=== PATIENT | female | born 1940 | race Caucasian/White ===

== ENCOUNTER 2016-07-15 01:40 | Inpatient (IN) | payer MEDICARE, BC ==
[~2016-07-15] VITALS: Ht 168.9 cm; Wt 69.0 kg
[2016-07-15] MEDS ORDERED: OMNIPAQUE 350 MG/ML, 100ML BOTTLE ONE (01:51)
[2016-07-15] MEDS ORDERED: SODIUM CHLORIDE FLUSH 10ML SYR IVF ONE (02:00)
[2016-07-15] MEDS ORDERED: SODIUM CHLORIDE 0.9% 1,000ML IVBOLUS ONE (02:00)
[2016-07-15] MEDS ORDERED: ONDANSETRON 2MG/ML, 2ML IVPush ONE (02:00)
[2016-07-15] MEDS ORDERED: ONDANSETRON 2MG/ML, 2ML ONE (02:19)
[2016-07-15 02:44] LABS: ASPARTATE AMINO TRANSFERASE 17 U/L (15-37); BLOOD UREA NITROGEN 14 mg/dL (7-18)
[2016-07-15 02:52] LABS: IS PT STATUS REG ER OR PRE ER? YES
[2016-07-15] MEDS ORDERED: SODIUM CHLORIDE 0.9% 1,000 ML IV SCH (03:42)
[2016-07-15] MEDS ORDERED: DOCUSATE CALCIUM 240 MG CAPSULE PO PRN (04:00)
[2016-07-15] MEDS ORDERED: ENOXAPARIN 40 MG/0.4 ML SQ SCH (04:00)
[2016-07-15] MEDS ORDERED: LABETALOL 5MG/ML, 20ML IV PRN (04:00)
[2016-07-15 04:16] VITALS: BP 137/82
[2016-07-15] MEDS ORDERED: LORazepam 0.5MG TABLET PO ONE (04:30)
[2016-07-15 05:40] VITALS: BP 137/82
[2016-07-15 05:51] VITALS: BP 119/63
[2016-07-15 06:34] VITALS: BP 131/69
[2016-07-15 06:41] LABS: PATH.CAST-FLAG NOT PRESENT; SPERM-FLAG NOT PRESENT; SRC-FLAG NOT PRESENT; XTAL-FLAG NOT PRESENT; YLC-FLAG NOT PRESENT
[2016-07-15] MEDS ORDERED: ASPIRIN 81 MG TABLET EC PO SCH (09:00)
[2016-07-15] MEDS ORDERED: LORazepam 2 MG/ML, 1ML IVPush ONE (11:00)
[2016-07-15 13:27] VITALS: BP 136/76
[2016-07-15] MEDS ORDERED: GADOBUTROL 7.5 MMOL/7.5 ML PFS ONE (15:24)
[2016-07-15] MEDS ORDERED: AMOX1TAB62 PO (16:50)
[2016-07-15] MEDS ORDERED: PNEUMOCOCCAL 23 VACCINE IM-VACC ONE (18:00)
[2016-07-15] MEDS ORDERED: ATORVASTATIN 40 MG TABLET PO SCH (21:00)
== END 2016-07-15 18:33 | disposition home or self-care (01) | DRG 153 ==
LOC: ED 03:04 → EDIP 03:21 → 4WST 04:16
PROVIDERS: ADMIT Hospitalist; ATTEND Hospitalist
DX: J32.3 Chronic sphenoidal sinusitis (principal); R42 Dizziness and giddiness; E83.51 Hypocalcemia; W18.30XA Fall on same level, unspecified, initial encounter; R73.9 Hyperglycemia, unspecified; Z79.82 Long term (current) use of aspirin; Z90.49 Acquired absence of other specified parts of digestive tract; Z90.710 Acquired absence of both cervix and uterus; Y93.89 Activity, other specified; Y92.89 Other specified places as the place of occurrence of the external cause
CPT/HCPCS: 36415; 70450; 70496; 70498; 70553; 80053; 81001; 83036; 84484; 85025; 85610; 85651; 85730; 86140; 87086; 90732; 93005; 93306; 96374; A9585; J2405; Q9967; J2060; J7030

== ENCOUNTER 2018-04-24 02:19 | Emergency (ER) | payer MEDICARE, BC ==
[~2018-04-24] VITALS: Ht 167.6 cm; Wt 63.0 kg
[~2018-04-24 02:19] MED LIST: AMOX1TAB62 PO
--- NOTE | 2018-04-24 02:55 | NUR ---
EPIGASTRIC PAIN AND TREMORS X 3 DAYS. LBM-YESTERDAY. DENIED URINARY SYPTOMS, URINE SAMPLE GIVEN. PT ANXIOUS AT THIS TIME. IV STARTED, PLACED ON ZYGLO INSPECTOR. AT BEDSIDE, CALL LIGHT IN REACH
[2018-04-24] MEDS ORDERED: LORazepam 2 MG/ML, 1ML IVPush ONE (03:00)
[2018-04-24 03:07] LABS: BASOPHILS # (AUTO) 0.02 x10^3/uL (0-0.1); BASOPHILS % (AUTO) 0 % (0-1); EOSINOPHILS # (AUTO) 0.15 x10^3/uL (0-0.4); EOSINOPHILS % (AUTO) 2 % (1-7); LYMPHOCYTES # (AUTO) 3.31 x10^3/uL (1-3.4); LYMPHOCYTES % (AUTO) 42 % (22-44); MD NO; MEAN CORPUSCULAR HEMOGLOBIN 29.9 pg (27.0-34.8); MEAN CORPUSCULAR HGB CONC 33.7 g/dL (32.4-35.8); MEAN CORPUSCULAR VOLUME 88.8 fL (80-100); MEAN PLATELET VOLUME 8.3 fL (7.4-10.4); MONOCYTES # (AUTO) 0.39 x10^3/uL (0.2-0.8); MONOCYTES % (AUTO) 5 % (2-9); NEUTROPHILS # (AUTO) 4.09 x10^3/uL (1.8-6.8); NEUTROPHILS % (AUTO) 51 % (42-75); PLATELET COUNT 316 x10^3/uL (130-400); RED BLOOD COUNT 4.43 x10^6/uL (3.82-5.3); RED CELL DISTRIBUTION WIDTH 13.9 % (9.6-15.2)
[2018-04-24] MEDS ORDERED: LORazepam 2 MG/ML, 1ML ONE (03:07)
--- NOTE | 2018-04-24 03:17 | NUR ---
PT MEDICATED PER eMAR
[2018-04-24 03:20] LABS: ALANINE AMINOTRANSFERASE 15 U/L (12-78); ALBUMIN 3.9 g/dL (3.4-5.0); ANION GAP 5 mmol/L (5-15); CALCIUM 8.7 mg/dL (8.5-10.1); CHLORIDE 113 mmol/L (98-107)
[2018-04-24 03:24] LABS: ALKALINE PHOSPHATASE 78 U/L (45-117); BILIRUBIN,TOTAL 0.5 mg/dL (0.2-1.0); TROPONIN I < 0.015 ng/mL (0.000-0.045)
--- NOTE | 2018-04-24 03:36 | NUR ---
PT FEELING MORE RELAXED NOW, HR DOWN, AWAITING CTA
--- NOTE | 2018-04-24 03:49 | NUR ---
PT TO CT
[2018-04-24] MEDS ORDERED: OMNIPAQUE 350 MG/ML, 100ML BOTTLE ONE (03:57)
[2018-04-24 04:35] VITALS: BP 109/67
--- NOTE | 2018-04-24 04:37 | NUR ---
PT AMBULATED TO BATHROOM AND BACK WITH STEADY GAIT, STATES SHE STILL FEELS MORE RELAXED. CALL LIGHT IN REACH
--- NOTE | 2018-04-24 05:00 | NUR ---
Patient/Caregiver given discharge instructions and they have confirmed that they understand the instructions. Patient ambulatory with steady gait.
== END 2018-04-24 05:05 | disposition home or self-care (01) ==
LOC: ED 05:00
DX: F41.1 Generalized anxiety disorder (principal)
CPT/HCPCS: 36415; 71275; 80053; 83690; 84484; 85025; 93005; 96374; 99284; J2060; Q9967

== ENCOUNTER 2019-05-17 21:56 | Observation (INO) | payer MEDICARE, BC ==
[~2019-05-17] VITALS: Ht 165.1 cm; Wt 58.0 kg
[2019-05-17] MEDS ORDERED: SODIUM CHLORIDE FLUSH 10ML SYR IVF ONE (22:30)
[2019-05-17 22:49] LABS: BASOPHILS # (AUTO) 0.04 x10^3/uL (0-0.1); BASOPHILS % (AUTO) 1 % (0-1); EOSINOPHILS # (AUTO) 0.28 x10^3/uL (0-0.4); EOSINOPHILS % (AUTO) 4 % (1-7); LYMPHOCYTES # (AUTO) 2.65 x10^3/uL (1-3.4); LYMPHOCYTES % (AUTO) 37 % (22-44); MD NO; MEAN CORPUSCULAR HEMOGLOBIN 29.9 pg (27.0-34.8); MEAN CORPUSCULAR HGB CONC 33.4 g/dL (32.4-35.8); MEAN CORPUSCULAR VOLUME 89.7 fL (80-100); MEAN PLATELET VOLUME 8.2 fL (7.4-10.4); MONOCYTES # (AUTO) 0.52 x10^3/uL (0.2-0.8); MONOCYTES % (AUTO) 7 % (2-9); NEUTROPHILS # (AUTO) 3.61 x10^3/uL (1.8-6.8); NEUTROPHILS % (AUTO) 51 % (42-75); PLATELET COUNT 313 x10^3/uL (130-400); RED BLOOD COUNT 4.38 x10^6/uL (3.82-5.3); RED CELL DISTRIBUTION WIDTH 13.3 % (9.6-15.2)
[2019-05-17 22:59] LABS: ALANINE AMINOTRANSFERASE 19 U/L (12-78); ALBUMIN 3.9 g/dL (3.4-5.0); ANION GAP 5 mmol/L (5-15); CHLORIDE 109 mmol/L (98-107); CREATININE 1.25 mg/dL (0.55-1.02)
[2019-05-17 23:04] LABS: ALKALINE PHOSPHATASE 82 U/L (45-117); BILIRUBIN,TOTAL 0.1 mg/dL (0.2-1.0); TOTAL PROTEIN 7.4 g/dL (6.4-8.2); TROPONIN I < 0.015 ng/mL (0.000-0.045)
--- NOTE | 2019-05-18 01:32 | NUR ---
ASSUMING CARE OF PT. AT THIS TIME. RECEIVED REPORT FROM EDWARD(YOVANI RN FOR GLORIA WHITEHEAD).
[2019-05-18] MEDS ORDERED: morphine SULFATE 10 MG/ML, 1ML IV PRN (03:30)
[2019-05-18] MEDS ORDERED: ACETAMINOPHEN 325 MG TABLET PO PRN (03:30)
[2019-05-18] MEDS ORDERED: ZOLPIDEM 5MG TABLET PO PRN (03:30)
[2019-05-18] MEDS ORDERED: LACTATED RINGERS 1,000 ML IV SCH (03:30)
[2019-05-18] MEDS ORDERED: NITROGLYCERIN 0.4 MG BOTTLE (25 TABS) SL PRN (03:30)
[2019-05-18] MEDS ORDERED: ONDANSETRON 2MG/ML, 2ML IV PRN (03:30)
[2019-05-18] MEDS ORDERED: NITROGLYCERIN 0.4 MG/SPRAY SL PRN (03:30)
--- NOTE | 2019-05-18 03:58 | NUR ---
ASSISTED PT. TO [facility]. BACK TO [facility] AND ALL MONITORS REPLACED. PT. REQUESTING WATER; EDUCATED ON NPO STATUS. MOUTH SWABS PROVIDED. PT. DENIES OTHER NEEDS. ALL SAFETY MEASURES OBSERVED. CALL LIGHT IN REACH.
[2019-05-18] MEDS ORDERED: ASPIRIN 325 MG TABLET EC ONE (04:59)
[2019-05-18 05:19] LABS: ANION GAP 7 mmol/L (5-15); CALCIUM 8.6 mg/dL (8.5-10.1); CHLORIDE 111 mmol/L (98-107)
[2019-05-18 05:25] LABS: CHOL/HDL RATIO 2.9; CHOLESTEROL, TOTAL 164 mg/dL (140-239); CREATININE 1.14 mg/dL (0.55-1.02); HDL CHOL % 35 % (28-40); HDL CHOLESTEROL (DIRECT) 57 mg/dL (40-60); LDL CHOLESTEROL,CALCULATED 83 mg/dL (54-169); LDL/HDL RATIO 1.5 (0.5-3.0); TRIGLYCERIDES 120 mg/dL (50-200); TROPONIN I < 0.015 ng/mL (0.000-0.045); VLDL CHOLESTEROL 24 mg/dL (0-25)
[2019-05-18] MEDS: ASPIRIN 325 MG TABLET EC PO SCH (05:28)
--- NOTE | 2019-05-18 05:29 | NUR ---
PT. MOVED FROM [facility]; VERBALIZED UNDERSTANING OF USE OF CONTORLS. PT. DENIES NEEDS AT THIS TIME. NO DISTRESS NOTED. ALL SAFETY MEASURES OBSERVED.
--- NOTE | 2019-05-18 06:59 | NUR ---
REPORT RECEIVED FROM GLORIA BOWENS. [facility]
--- NOTE | 2019-05-18 07:33 | NUR ---
PT RESTING IN [facility]. NAD. VSS. NO NEEDS AT THIS TIME.
--- NOTE | 2019-05-18 09:00 | NUR ---
PT RESTING IN [facility]. NAD. VSS.
--- NOTE | 2019-05-18 11:31 | NUR ---
PT RESTING IN [facility]. VSS. PT STATES "IM JUST TRYING TO CATCH UP ON SLEEP"
[2019-05-18 12:06] LABS: TROPONIN I < 0.015 ng/mL (0.000-0.045)
--- NOTE | 2019-05-18 12:53 | NUR ---
[facility]. [facility]. No needs.
[2019-05-18] MEDS: LACTATED RINGERS 1,000 ML IV SCH (16:54)
[2019-05-18 16:59] VITALS: BP 129/70
[2019-05-18 17:22] VITALS: BP 129/70
[2019-05-18 20:20] VITALS: BP 119/61
[2019-05-19 00:08] VITALS: BP 127/73
[2019-05-19] MEDS: LACTATED RINGERS 1,000 ML IV SCH (00:27)
[2019-05-19] MEDS ORDERED: ASPIRIN 325 MG TABLET EC PO SCH (06:00)
[2019-05-19] MEDS: ASPIRIN 325 MG TABLET EC PO SCH (06:31)
[2019-05-19 06:40] VITALS: BP 124/68
[2019-05-19 11:17] LABS: BASOPHILS # (AUTO) 0.03 x10^3/uL (0-0.1); BASOPHILS % (AUTO) 1 % (0-1); EOSINOPHILS # (AUTO) 0.17 x10^3/uL (0-0.4); EOSINOPHILS % (AUTO) 2 % (1-7); LYMPHOCYTES # (AUTO) 2.19 x10^3/uL (1-3.4); LYMPHOCYTES % (AUTO) 31 % (22-44); MD NO; MEAN CORPUSCULAR HGB CONC 33.3 g/dL (32.4-35.8); MEAN CORPUSCULAR VOLUME 89.8 fL (80-100); MEAN PLATELET VOLUME 8.2 fL (7.4-10.4); MONOCYTES # (AUTO) 0.45 x10^3/uL (0.2-0.8); MONOCYTES % (AUTO) 6 % (2-9); NEUTROPHILS # (AUTO) 4.17 x10^3/uL (1.8-6.8); NEUTROPHILS % (AUTO) 60 % (42-75); PLATELET COUNT 290 x10^3/uL (130-400); RED BLOOD COUNT 4.29 x10^6/uL (3.82-5.3); RED CELL DISTRIBUTION WIDTH 12.9 % (9.6-15.2)
[2019-05-19 11:26] LABS: ANION GAP 7 mmol/L (5-15); CALCIUM 9.1 mg/dL (8.5-10.1); CHLORIDE 110 mmol/L (98-107); CREATININE 1.05 mg/dL (0.55-1.02)
== END 2019-05-19 16:37 | disposition home or self-care (01) ==
LOC: ED 22:41 → EDIP 23:43 → INTOOBSV 23:43 → 5SO 05-18 16:01
PROVIDERS: ADMIT Family Medicine; ATTEND Internal Medicine
DX: R07.9 Chest pain, unspecified (principal); I24.9 Acute ischemic heart disease, unspecified; E86.0 Dehydration; N17.9 Acute kidney failure, unspecified; Z03.818 Encounter for observation for suspected exposure to other biological agents ruled out
CPT/HCPCS: 36415; 71045; 80048; 80053; 80061; 83880; 84443; 84484; 85025; 93005; 93017; 99285; G0378; J7120

== ENCOUNTER → 2019-06-24 | Outpatient (CLI) | payer MEDICARE, BC | END | disposition home or self-care (01) | LOC: CFH 09:40 | PROVIDERS: ATTEND Family Medicine | DX: Z77.090 Contact with and (suspected) exposure to asbestos (principal) | CPT/HCPCS: 71250 ==

== ENCOUNTER 2019-12-08 04:12 | Observation (INO) | payer MEDICARE, BC ==
[~2019-12-08] VITALS: Ht 167.6 cm; Wt 64.9 kg
--- NOTE | 2019-12-08 04:15 | NUR ---
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 SHE ALSO ENDORSES SOB. SHE DENIES ANY PMHX.
[2019-12-08] MEDS ORDERED: ASPIRIN 81 MG TABLET CHEW ONE (04:54)
[2019-12-08] MEDS ORDERED: ASPIRIN 81 MG TABLET CHEW PO ONE (05:00)
[2019-12-08 05:11] LABS: MEAN CORPUSCULAR HEMOGLOBIN 29.4 pg (27.0-34.8); MEAN CORPUSCULAR HGB CONC 32.9 g/dL (32.4-35.8); MEAN PLATELET VOLUME 8.6 fL (7.4-10.4); PLATELET COUNT 299 x10^3/uL (130-400); RED BLOOD COUNT 4.76 x10^6/uL (3.82-5.3); RED CELL DISTRIBUTION WIDTH 13.6 % (9.6-15.2)
[2019-12-08 05:16] LABS: ALANINE AMINOTRANSFERASE 18 U/L (12-78); ALBUMIN 4.1 g/dL (3.4-5.0); ANION GAP 6 mmol/L (5-15); CALCIUM 9.3 mg/dL (8.5-10.1); CHLORIDE 108 mmol/L (98-107)
[2019-12-08 05:21] LABS: ALKALINE PHOSPHATASE 91 U/L (45-117); BILIRUBIN,TOTAL 0.4 mg/dL (0.2-1.0); CREATININE 1.08 mg/dL (0.55-1.02); TOTAL PROTEIN 7.5 g/dL (6.4-8.2); TROPONIN I < 0.015 ng/mL (0.000-0.045)
[2019-12-08 05:46] LABS: MD YES
[2019-12-08 05:50] LABS: BASOS#(MANUAL) 0.08 x10^3/uL (0-0.1); BASOS% (MANUAL) 1 % (0-1); EOS#(MANUAL) 0.08 x10^3/uL (0.0-0.4); EOS% (MANUAL) 1 % (1-7); LYMPH#(MANUAL) 3.74 x10^3/uL (1-3.4); LYMPHS% (MANUAL) 48 % (22-44); MONOS#(MANUAL) 0.47 x10^3/uL (0.3-2.7); MONOS% (MANUAL) 6 % (2-9); REACTIVE LYMPHS # (MANUAL) 0.39 x10^3/uL (0-0); REACTIVE LYMPHS % (MANUAL) 5 % (0-0); SEG#(MANUAL) 3.04 x10^3/uL (1.8-6.8); SEGS% (MANUAL) 39 % (42-75)
[2019-12-08 05:51] LABS: <PLATELET ESTIMATE> ADEQUATE; <PLT MORPHOLOGY> NORMAL PLT MORPH; <RBC MORPHOLOGY> NORMAL
--- NOTE | 2019-12-08 06:54 | NUR ---
REPORT RECEIVED FROM NELLY CASTRO. PT RESTING ON GURNEY W/ CALL LIGHT IN REACH AND FAMILY AT BEDSIDE, JHONNY PARDO. AWAITING TROPONIN REDRAW.
--- NOTE | 2019-12-08 07:25 | NUR ---
LAB IN ROOM FOR REDRAW.
[2019-12-08 07:50] LABS: TROPONIN I < 0.015 ng/mL (0.000-0.045)
--- NOTE | 2019-12-08 07:55 | NUR ---
ALL TESTS RESULTED. PT IS UP FOR RECHECK AT THIS TIME. PT RESTING ON [employer] W/ CALL LIGHT IN REACH. RESP EVEN AND UNLABORED, JHONNY.
--- NOTE | 2019-12-08 08:15 | NUR ---
PT AMBULATED TO THE BR W/ A STEADY GAIT. RETURNED TO ROOM W/O INCIDENT. ZOYAS, JHONNY.
--- NOTE | 2019-12-08 08:59 | NUR ---
ATTEMPT TO CALL REPORTX1, RN UNAVAILABLE.
--- NOTE | 2019-12-08 09:21 | NUR ---
REPORT GIVEN TO EDWIN CASTRO. PT IS READY FOR TRANSPORT AT THIS TIME.
[2019-12-08] MEDS ORDERED: ENALAPRILAT 1.25 MG/ML, 2ML IVPush PRN (11:00)
[2019-12-08] MEDS ORDERED: LABETALOL 5MG/ML, 20ML IVPush PRN (11:00)
[2019-12-08] MEDS ORDERED: ONDANSETRON ODT 4 MG PO PRN (11:00)
[2019-12-08] MEDS ORDERED: BISACODYL 10 MG SUPP PR PRN (11:00)
[2019-12-08] MEDS ORDERED: POLYETHYLENE GLYCOL 17 GM PACKET PO PRN (11:00)
[2019-12-08] MEDS ORDERED: ACETAMINOPHEN 325 MG TABLET PO PRN (11:00)
[2019-12-08] MEDS ORDERED: ONDANSETRON 2MG/ML, 2ML IVPush PRN (11:00)
[2019-12-08 11:08] VITALS: BP 133/78
[2019-12-08] MEDS: HEPARIN 5,000 UNITS/ML, 1ML SQ SCH ×2 (11:24→21:02)
[2019-12-08 13:11] LABS: TROPONIN I < 0.015 ng/mL (0.000-0.045)
[2019-12-08 13:48] VITALS: BP 157/93
[2019-12-08 15:25] VITALS: BP 157/93
[2019-12-08 20:21] VITALS: BP 136/64
[2019-12-09 01:12] VITALS: BP 125/69
[2019-12-09] MEDS: HEPARIN 5,000 UNITS/ML, 1ML SQ SCH ×2 (05:11→14:50)
[2019-12-09 05:44] LABS: MEAN CORPUSCULAR HEMOGLOBIN 29.5 pg (27.0-34.8); MEAN CORPUSCULAR HGB CONC 33.5 g/dL (32.4-35.8); MEAN PLATELET VOLUME 8.5 fL (7.4-10.4); PLATELET COUNT 287 x10^3/uL (130-400); RED BLOOD COUNT 4.61 x10^6/uL (3.82-5.3); RED CELL DISTRIBUTION WIDTH 13.7 % (9.6-15.2)
[2019-12-09 05:55] LABS: ANION GAP 6 mmol/L (5-15); CALCIUM 9.1 mg/dL (8.5-10.1); CHLORIDE 111 mmol/L (98-107)
[2019-12-09 05:59] LABS: CHOL/HDL RATIO 2.9; CHOLESTEROL, TOTAL 191 mg/dL (140-239); CREATININE 0.98 mg/dL (0.55-1.02); HDL CHOL % 34 % (28-40); HDL CHOLESTEROL (DIRECT) 65 mg/dL (40-60); LDL CHOLESTEROL,CALCULATED 103 mg/dL (54-169); LDL/HDL RATIO 1.6 (0.5-3.0); TRIGLYCERIDES 115 mg/dL (50-200); VLDL CHOLESTEROL 23 mg/dL (0-25)
[2019-12-09 06:37] LABS: MD YES
[2019-12-09 06:39] LABS: <PLATELET ESTIMATE> ADEQUATE; <PLT MORPHOLOGY> NORMAL PLT MORPH; <RBC MORPHOLOGY> NORMAL; BASOS#(MANUAL) 0.07 x10^3/uL (0-0.1); BASOS% (MANUAL) 1 % (0-1); EOS#(MANUAL) 0.13 x10^3/uL (0.0-0.4); EOS% (MANUAL) 2 % (1-7); LYMPH#(MANUAL) 3.38 x10^3/uL (1-3.4); LYMPHS% (MANUAL) 52 % (22-44); MONOS#(MANUAL) 0.13 x10^3/uL (0.3-2.7); MONOS% (MANUAL) 2 % (2-9); REACTIVE LYMPHS % (MANUAL) 3 % (0-0); SEGS% (MANUAL) 40 % (42-75)
[2019-12-09] MEDS ORDERED: PANTOPRAZOLE 40MG TABLET PO SCH (08:30)
[2019-12-09] MEDS ORDERED: MAALOX/HYOSCYAMINE/LIDOCAINE 45 ML BTL PO ONE (08:30)
[2019-12-09] MEDS ORDERED: REGADENOSON 0.4 MG/5 ML SYRINGE ONE (08:34)
[2019-12-09 08:36] VITALS: BP 129/70
[2019-12-09] MEDS ORDERED: SENNA/DOCUSATE TABLET PO SCH (09:00)
[2019-12-09] MEDS ORDERED: FLU VACC QS2020-21(6MOS UP)/PF 60MCG/0.5 ML SYR IM ONE (13:00)
[2019-12-09 13:27] VITALS: BP 122/63
[2019-12-09] MEDS ORDERED: PANT40TA6 PO (14:28)
== END 2019-12-09 16:04 | disposition home or self-care (01) ==
LOC: ED 05:53 → EDIP 08:33 → INTOOBSV 08:33 → 5SO 10:05 → DCLOUNGE 12-09 15:46
PROVIDERS: ADMIT Family Medicine; ATTEND Family Medicine
DX: R07.89 Other chest pain (principal); R06.00 Dyspnea, unspecified; I10 Essential (primary) hypertension; M79.605 Pain in left leg; M79.89 Other specified soft tissue disorders; M19.90 Unspecified osteoarthritis, unspecified site; F41.1 Generalized anxiety disorder; Z85.89 Personal history of malignant neoplasm of other organs and systems; Z90.710 Acquired absence of both cervix and uterus; Z23 Encounter for immunization
CPT/HCPCS: 36415; 71045; 78452; 80048; 80053; 80061; 83880; 84484; 85025; 85379; 90686; 93005; 93017; 93306; 93356; 93971; 96372; 99285; A9502; C9898; G0008; G0378; J1644; J2785

== ENCOUNTER 2020-01-16 13:08 | Emergency (ER) | payer MEDICARE, BC ==
[~2020-01-16] VITALS: Ht 167.6 cm; Wt 63.9 kg
[~2020-01-16 13:08] MED LIST changes: +PANT40TA6 PO
[2020-01-16] MEDS ORDERED: ASPIRIN 81 MG TABLET CHEW PO ONE (13:30)
[2020-01-16 14:06] LABS: ALBUMIN 4.1 g/dL (3.4-5.0); ANION GAP 5 mmol/L (5-15); CALCIUM 9.6 mg/dL (8.5-10.1); CHLORIDE 107 mmol/L (98-107)
[2020-01-16 14:12] LABS: ALANINE AMINOTRANSFERASE 23 U/L (12-78); ALKALINE PHOSPHATASE 89 U/L (45-117); BILIRUBIN,TOTAL 0.9 mg/dL (0.2-1.0); CREATININE 1.03 mg/dL (0.55-1.02); TOTAL PROTEIN 7.4 g/dL (6.4-8.2); TROPONIN I < 0.015 ng/mL (0.000-0.045)
[2020-01-16 16:09] VITALS: BP 122/69
--- NOTE | 2020-01-16 16:20 | NUR ---
GORE INSERTER: PT AMBULTORY TO ROOM FROM [facility]
[2020-01-16 16:41] LABS: BASOPHILS % (AUTO) 0 % (0-1); EOSINOPHILS % (AUTO) 0 % (1-7); LYMPHOCYTES % (AUTO) 23 % (22-44); MEAN CORPUSCULAR HGB CONC 33.6 g/dL (32.4-35.8); MEAN PLATELET VOLUME 8.2 fL (7.4-10.4); MONOCYTES % (AUTO) 6 % (2-9); NEUTROPHILS % (AUTO) 70 % (42-75); PLATELET COUNT 286 x10^3/uL (130-400); RED CELL DISTRIBUTION WIDTH 13.3 % (9.6-15.2)
--- NOTE | 2020-01-16 16:41 | NUR ---
FIRST PT CONTACT
[2020-01-16 16:42] LABS: MD NO
--- NOTE | 2020-01-16 17:19 | NUR ---
pt up to restroom for ua sample. pt ambulates with a steady gait.
--- NOTE | 2020-01-16 17:26 | NUR ---
tech at bedside to start iv
[2020-01-16] MEDS ORDERED: MAALOX/HYOSCYAMINE/LIDOCAINE 45 ML BTL ONE (18:02)
[2020-01-16] MEDS ORDERED: MAALOX/HYOSCYAMINE/LIDOCAINE 45 ML BTL PO ONE (18:30)
[2020-01-16] MEDS ORDERED: KETOROLAC 30 MG/1 ML IVPush ONE (19:30)
[2020-01-16] MEDS ORDERED: KETOROLAC 30 MG/1 ML ONE (19:30)
== END 2020-01-16 20:22 | disposition home or self-care (01) ==
LOC: ED 16:25
DX: R07.1 Chest pain on breathing (principal); Z20.828 Contact with and (suspected) exposure to other viral communicable diseases; R07.89 Other chest pain; R00.0 Tachycardia, unspecified; K21.9 Gastro-esophageal reflux disease without esophagitis; Z90.89 Acquired absence of other organs; Z90.710 Acquired absence of both cervix and uterus
CPT/HCPCS: 36415; 71045; 80053; 84484; 85025; 85379; 87635; 93005; 96374; 99285; J1885